=== PATIENT | male | born 1955 | race Caucasian/White ===

== ENCOUNTER 2018-10-16 14:38 | Outpatient (CLI) | payer BC | END 2018-10-16 14:39 | disposition home or self-care (01) | LOC: ULT 14:38 | PROVIDERS: ATTEND Internal Medicine | DX: R07.9 Chest pain, unspecified (principal); R01.1 Cardiac murmur, unspecified; I08.1 Rheumatic disorders of both mitral and tricuspid valves | CPT/HCPCS: 93306 ==

== ENCOUNTER 2018-10-23 09:07 | Outpatient (CLI) | payer BC ==
[2018-10-23] MEDS ORDERED: ADENOSINE 60 MG/20 ML VIAL ONE (09:44)
--- NOTE | 2018-10-23 15:22 | NM ---
NUCLEAR MEDICINE CARDIAC PERFUSION EXAMINATION WITH EJECTION FRACTION: HISTORY: 63-year-old male with chest pain. TECHNIQUE: A single day nuclear medicine cardiac perfusion examination was performed. Rest images were obtained using 10.2 mCi of technetium-99m sestamibi. Stress images were obtained using 33 mCi of technetium-99 m sestamibi and Adenosine. FINDINGS: Tomographic images show no fixed or reversible perfusion defects. Gated images show normal wall motio n with an ejection fraction of greater than 70%. EDV: 70 ml LHR: 0.4 TID: 0.9 IMPRESSION: No evidence of ischemia. POS: [facility]
== END 2018-10-23 09:08 | disposition home or self-care (01) ==
LOC: NM 09:07
PROVIDERS: ATTEND Internal Medicine
DX: R07.9 Chest pain, unspecified (principal); R01.1 Cardiac murmur, unspecified
CPT/HCPCS: 78452; 93017; A9500; J0153

== ENCOUNTER 2021-12-24 12:11 | Emergency (ER) | payer BC ==
[2021-12-24 13:24] LABS: #Lymphocytes 1.2 thou/uL (1.20-3.40); #Monocytes 1.1 thou/uL (0.11-0.59); #Neutrophils 16.1 thou/uL (1.40-6.50); %Basophils 0.1 % (0.0-1.0); %Eosinophils 0.2 % (0.0-10.0); %Lymphocytes 6.7 % (21.0-51.0); %Monocytes 5.9 % (0.0-10.0); %Neutrophils 87.2 % (42.0-75.0); Hemoglobin 14.9 g/dL (14.0-18.0); Mean Corpuscular HGB CONC 32.8 g/dL (32.0-36.0); Mean Corpuscular Hemoglobin 31.4 pg (27.0-31.0); Mean Corpuscular Volume 95.8 fL (78.0-98.0); Platelet Count 385 thou/uL (130-400); RBC Distribution Width 11.5 % (11.5-14.5); Red Blood Cell (RBC) Count 4.75 mill/uL (4.70-6.10); White Blood Cell (WBC) Count 18.5 thou/uL (4.8-10.8)
[2021-12-24 13:43] LABS: ALT (SGPT) 19 U/L (8-55); AST (SGOT) 14 U/L (5-34); Albumin 3.8 g/dL (3.4-4.8); Alkaline Phosphatase 80 U/L (40-110); Anion Gap 12 mmol/L (10-20); BUN (Urea Nitrogen) 15 mg/dL (8.4-25.7); Bilirubin, Total 0.7 mg/dL (0.2-1.2); Calc. Creatinine Clearance 0 mL/min (70-130); Calcium 9.4 mg/dL (7.8-10.44); Carbon Dioxide 26 mmol/L (23-31); Chloride 99 mmol/L (98-107); Globulin 3.7 g/dL (2.4-3.5); Glucose 76 mg/dL (80-115); Potassium 3.2 mmol/L (3.5-5.1); Protein, Total 7.5 g/dL (5.8-8.1); Sodium 134 mmol/L (136-145)
[2021-12-24 18:42] LABS: SARS-CoV-2 PCR by NAA DETECTED (NotDetected)
== END 2021-12-24 15:06 | disposition home or self-care (01) ==
LOC: ERS 12:11
DX: U07.1 COVID-19 (principal); L03.317 Cellulitis of buttock; I10 Essential (primary) hypertension; G83.9 Paralytic syndrome, unspecified
CPT/HCPCS: 36415; 80053; 83605; 85025; 94760; U0003; U0005